=== PATIENT | female | born 1990 | race Native Hawaiian/Other Pacific Islander ===

== ENCOUNTER 2020-02-29 16:30 | Emergency (ER) | payer OTHER ==
[~2020-02-29] VITALS: Ht 167.6 cm; Wt 106.6 kg
[2020-02-29 17:31] LABS: PLATELET COUNT 217 K/uL (152-353)
[2020-02-29 17:40] LABS: POTASSIUM 3.8 mmol/L (3.6-5.2)
[2020-02-29 19:00] VITALS: BP 133/75; TEMP 98.5
== END 2020-02-29 19:00 | disposition home or self-care (01) ==
LOC: ED 16:30
PROVIDERS: Emergency Medicine Emergency Medical Services
DX: N12 Tubulo-interstitial nephritis, not specified as acute or chronic (principal)
CPT/HCPCS: 36415; 80053; 81000; 81025; 85027; 87086; 87088; 96360; 96375; 99284; J0696; J1885